=== PATIENT | male | born 1990 | race African-American/Black ===

== ENCOUNTER 2020-07-17 21:05 | Emergency (ER) | payer OTHER ==
[~2020-07-17] VITALS: Ht 167.6 cm; Wt 75.0 kg
[2020-07-17] MEDS ORDERED: KETOROLAC 30MG/ML VIAL IM ONE (22:45)
[2020-07-17] MEDS ORDERED: ACETAMINOPHEN 325MG TABLET PO ONE (22:45)
[2020-07-17 23:12] VITALS: BP 155/94
== END 2020-07-17 23:13 | disposition home or self-care (01) ==
LOC: ER 21:05
DX: K02.9 Dental caries, unspecified (principal); R03.0 Elevated blood-pressure reading, without diagnosis of hypertension
CPT/HCPCS: 96372; 99283; J1885

== ENCOUNTER 2023-02-20 17:52 | Emergency (ER) | payer MEDICAID ==
[~2023-02-20] VITALS: Ht 167.6 cm; Wt 74.0 kg
[2023-02-20 17:56] VITALS: BP 128/83
== END 2023-02-20 19:42 | disposition home or self-care (01) ==
LOC: ER 17:52
DX: Z48.02 Encounter for removal of sutures (principal)
CPT/HCPCS: 99281; Z7610